=== PATIENT | female | born 1985 | race Caucasian/White ===

== ENCOUNTER 2018-01-07 10:08 | Day surgery (SDC) | payer OTHER ==
[2018-01-07] MEDS ORDERED: LIDOCAINE 4% SOLUTION 50 ML BTL (11:00)
[2018-01-07] MEDS ORDERED: MIDAZOLAM 1 MG/ML 2 ML INJ ×2 (12:43)
[2018-01-07] MEDS ORDERED: FENTAnyl 50 MCG/ML VIAL (12:43)
== END 2018-01-07 14:21 | disposition home or self-care (01) ==
LOC: GIL 10:08
DX: K29.70 Gastritis, unspecified, without bleeding (principal)
CPT/HCPCS: 43239; 84703

== ENCOUNTER 2019-04-05 09:26 | Day surgery (SDC) | payer OTHER ==
[2019-04-05] MEDS ORDERED: MIDAZOLAM 1 MG/ML 2 ML INJ ×2 (11:30)
[2019-04-05] MEDS ORDERED: FENTAnyl 50 MCG/ML VIAL (11:30)
== END 2019-04-05 12:53 | disposition home or self-care (01) ==
LOC: GIL 09:26
DX: K64.0 First degree hemorrhoids (principal)
CPT/HCPCS: 45378; 88305